=== PATIENT | female | born 1970 | race Caucasian/White ===

== ENCOUNTER 2016-11-12 05:27 | Day surgery (SDC) | payer OTHER ==
[2016-11-05 10:43] LABS: ABSOLUTE EOSINOPHILS # (AUTO) 0.2 10^3/uL (0.0-0.6); ABSOLUTE LYMPHOCYTES (AUTO) 3.4 10^3/uL (0.5-4.7); ABSOLUTE MONOCYTES (AUTO) 0.8 10^3/uL (0.1-1.4); BASOPHILS % (AUTO) 0.4 % (0-2); EOSINOPHILS % (AUTO) 1.8 % (0-6); HEMATOCRIT 38.1 % (36.0-47.0); HEMOGLOBIN 12.8 g/dL (12.0-15.5); HGB HCT DIFFERENCE 0.3; LYMPHOCYTES % (AUTO) 32.5 % (13-45); MEAN CORPUSCULAR HEMOGLOBIN 26.4 pg (27.0-33.4); MEAN CORPUSCULAR HGB CONC 33.5 g/dL (32.0-36.0); MEAN CORPUSCULAR VOLUME 79 fl (80-97); MONOCYTES % (AUTO) 7.9 % (3-13); RED BLOOD COUNT 4.85 10^6/uL (3.72-5.28); RED CELL DISTRIBUTION WIDTH 16.3 % (11.5-14.0); SEGMENTED NEUTROPHILS % (AUTO) 57.4 % (42-78); WHITE BLOOD COUNT 10.4 10^3/uL (4.0-10.5)
[2016-11-05 11:23] LABS: ANION GAP 12 (5-19); BLOOD UREA NITROGEN 12 mg/dL (7-20); CALCIUM 9.9 mg/dL (8.4-10.2); CARBON DIOXIDE 22 mmol/L (22-30); CHLORIDE 104 mmol/L (98-107); CREATININE RESULT 0.76 mg/dL (0.52-1.25); GLUCOSE 89 mg/dL (75-110); SODIUM 137.8 mmol/L (137-145)
[~2016-11-12 05:27] MED LIST: CEFAZOLIN INJ 1 GM VIAL IV PRN; LACTATED RINGERS 1000 ML IV PRN; LIDOCAINE 0.5% INJ-PF (5 MG/ML) 50 ML SDV SUBCUT PRN; NORMAL SALINE 1000 ML 1,000 ML IV PRN
[2016-11-12] MEDS ORDERED: CEFAZOLIN 2 GM/D5W RTU 2 GM/50 ML RTUPB IV ONE (05:30)
[2016-11-12] MEDS ORDERED: BUPIVACAINE HCL 0.25 % INJ/PF (2.5 MG/1 ML) 30 ML VIAL ONE (06:55)
[2016-11-12] MEDS ORDERED: METHYLENE BLUE 50 MG/10 ML AMPULE ONE (06:57)
[2016-11-12] MEDS ORDERED: MIDAZOLAM 2 MG/2 ML INJ ONE (07:16)
[2016-11-12] MEDS ORDERED: MORPHINE SULFATE 10 MG/ML INJ ONE (07:17)
[2016-11-12] MEDS ORDERED: FENTANYL CITRATE INJ/PF 250 MCG/5 ML AMPULE ONE (07:17)
[2016-11-12] MEDS ORDERED: PROPOFOL INJ 200 MG/20 ML VIAL IV ONE (07:17)
[2016-11-12] MEDS ORDERED: MEPERIDINE HCL/PF INJ 25 MG/1 ML DISP.SYRIN IV PRN (08:14)
[2016-11-12] MEDS ORDERED: DIPHENHYDRAMINE HCL 50 MG/ML VIAL IV PRN (08:14)
[2016-11-12] MEDS ORDERED: PROMETHAZINE HCL INJ 25 MG/1 ML VIAL IV PRN ×3 (08:14→11:35)
[2016-11-12] MEDS ORDERED: OXYCODONE-ACETAMINOPHEN 5-325 MG TABLET PO PRN ×3 (08:14→11:34)
[2016-11-12] MEDS ORDERED: FENTANYL CITRATE INJ/PF 100 MCG/2 ML AMPUL IV PRN ×3 (08:14)
[2016-11-12] MEDS ORDERED: MORPHINE SULFATE 10 MG/ML INJ IV PRN ×2 (08:14→11:34)
[2016-11-12] MEDS: FENTANYL CITRATE INJ/PF 100 MCG/2 ML AMPUL ONE ×3 (10:55→11:29)
--- NOTE | 2016-11-12 12:02 | OPERATIVE REPORT E ---
Operative Report NAME: EVERARDO STEPHENS : 1970 AGE: 46Y DATE OF SURGERY: 11/12/2016 ROOM: PREOPERATIVE DIAGNOSES: 1. MENOMETRORRHAGIA UNRESPONSIVE TO MEDICAL THERAPY. 2. UTERINE FIBROIDS. 3. PELVIC PAIN. POSTOPERATIVE DIAGNOSES: 1. MENOMETRORRHAGIA UNRESPONSIVE TO MEDICAL THERAPY. 2. UTERINE FIBROIDS. 3. PELVIC PAIN. 4. EXTENSIVE ABDOMINAL ADHESIONS. OPERATION: 1. Robotic total laparoscopic hysterectomy. 2. Bilateral salpingectomy. 3. Cystoscopy. 4. Lysis of adhesions. SURGEON: Rhoda Oates MD FRUIT AND VEGETABLE PACKER: Kimberly Minor MD ANESTHESIA: General. ESTIMATED BLOOD LOSS: 150 mL. INTRAVENOUS FLUIDS: 2000 mL. URINE OUTPUT: 300 mL clear urine at the end of the procedure. COMPLICATIONS: None. INDICATIONS: The patient is a 46-year-old, 1, para 1, with a history of menometrorrhagia unresponsive to medical therapy and who has a 4.1 cm intrauterine fibroid. Patient desired definitive treatment. She was counseled on robotic hysterectomy including, but not limited to, bleeding, infection, injury to surrounding organs or tissue, need of transfusion and possible exploratory laparotomy in case there is bleeding that cannot be identified or visualized during the surgical procedure, or too many adhesions due to previous surgical history. The patient understood and consented to procedure and agreed to proceed to the operating room. FINDINGS: Large myomatous uterus. Normal tubes and ovaries bilaterally. Soft boggy uterus consistent with *------*. Extensive omental adhesions to the anterior abdominal wall that had to be taken down. DESCRIPTION OF PROCEDURE: The patient was taken to the operating room. General anesthesia was induced without difficulty. She was placed in the dorsal lithotomy position, and was sterilely prepped and draped in the usual sterile fashion. Dora Hugger was placed to maintain control of core body temperature. Kimball catheter was placed in the bladder. A heavy weighted speculum was placed in the vaginal mucosae. A single-tooth tenaculum was placed on the anterior lip of the cervix. The cervical os was dilated so a uterine sound was used and was sounded to 10 cm. Two [id number] stitches are around 3 o'clock and 9 o'clock; were placed with anchoring sutures prior to placing the VCare. A VCare manipulator was attached to the uterus with a cervical ring and anchored to the stitches, the right and the left. Weighted speculum and single-tooth tenaculum were removed from the anterior lip of the cervix. Then the other 2 sutures were placed on the lateral aspect of the cervix to use as traction later, or in the case as needed, along with the VCare and they were anchored within the VCare itself. Horizontal supraumbilical incision was performed a scalpel. Veress needle was placed in abdominal cavity. Through the Veress needle, carbon dioxide was infused until pneumoperitoneum was established and obtained. This was done after the water drop test was done successfully. Veress needle was removed. The supraumbilical incision was extended and a 12-mm trocar and sleeve were placed in the umbilical cavity under direct visualization with the laparoscope without any difficulty. Trocar removed. Robotic laparoscope was placed in abdominal cavity. Please see the above findings. Due to extensive omental adhesions to the anterior abdominal wall, two 8 mm surgery ports are placed inferior to the umbilicus and lateral to the rectus abdominal muscles bilaterally. These were put in with partial view with a laparoscope and under direct visualization. They were put in and there was no injuries to surrounding organs or bowel or vasculature from that end. An administrative library assistant port was placed in the right upper quadrant as well. After all the ports have been identified and placed appropriately, using graspers and the LigaSure, the anterior omental adhesions were cauterized and transected for some of the lesions, and others were just peeled off easily. Once we had the anterior abdominal wall adhesions out of the equation, the hysterectomy portion was initiated. Prior to initiating the hysterectomy, ureters were identified on both sides and were both visualized, and have both excellent peristalsis prior to initiating the dissection and were well out of the surgical field at all times. At this point, the fimbriated end of the right fallopian tube was grasped on the right side, coagulated and transected along the mesosalpinx all the way down to the cornual region. The round ligament on the right side was cauterized and transected. The utero-ovarian ligament was cauterized and transected from the round ligament all the way down to the level of the uterus and the uterine arteries. Prior again to going through the right side, prior to initiating the procedure, both ureters were identified. The contralateral side was performed in a similar fashion where the fimbriated end of the fallopian tubes was grasped and picked up all the way through the mesosalpinx all the way to the cornual region, cauterized and transected. The utero-ovarian [ligament] was cauterized and transected. The round ligament was cauterized and transected all the way down to the level of the uterus and the uterine arteries. The vesicouterine peritoneum on the right side was then incised in an elliptical fashion, performing the right side of the bladder flap. The bladder was pushed down to the lower uterine segment without any difficulty. The ring was identified anteriorly and anterior colpotomy was performed. Colpotomy was then extended, circumscribing the cervix from the vaginal mucosae. The uterus and both fallopian tubes and the cervix were delivered through the vaginal mucosae. There were multiple oozing spots on the right side and the left side lateral pelvic sidewall and the vaginal cuff. Those were cauterized with a bipolar. The vaginal cuff at this point was closed using a running V-Loc suture. Attention was then turned to the ureters bilaterally to make sure we were far away from it. After closure of vaginal cuff, the ureters were bilateral peristalsing and were normal. Survey of the lateral pelvic sidewall also revealed excellent hemostasis. FloSeal was injected along the vaginal cuff for prophylactic measures and hemostasis. A second FloSeal was injected over the omental adhesions that were taken down due to being slightly oozy. Prior to applying the FloSeal over the omental region, some of the omentum was picked up with a LigaSure and it was cauterized and became hemostatic, so FloSeal was applied on top of it just for hemostasis as well as to make sure for extra coverage. At this point attention was then turned to below to perform the cystoscopy portion. Prior to removing the robotic instruments, methylene blue was given per my instructions to Anesthesia while doing the vaginal cuff closure. At this point, attention was then turned to below to perform the cystoscopy portion. The cystoscope was introduced without any difficulty. Cystoscope visualization revealed no trauma or foreign bodies or injury to the bladder and mucosal wall. Both ureters identified and there was excellent strong flow of efflux of blue urine bilaterally from both ureters on the right and the left side; and, of course, there was the normal bubble sign as well. There was excellent efflux from both urethral orifices with strong flow. At this point, the cystoscope was removed. The robot was undocked. The abdomen was desufflated. The trocars were removed. The 12 mm supraumbilical incision was repaired with a UR6 to repair the fascia and reapproximated. The remaining incisions were closed with 4-0 Monocryl in a horizontal mattress fashion and a running fashion for the supraumbilical and the right upper quadrant incision in a subcuticular fashion. Dermabond was applied on top of it. All sponge and needle counts were correct x2. Dermabond was applied on top of the incisions. Patient did receive prophylactic IV antibiotics. Kimball bag was noted to contain clear urine at the end of the procedure. Kimball catheter was removed. Vaginal mucosa was inspected to make sure there were no lacerations. A sponge stick was used to remove any previous old blood and debris. The patient was extubated successfully in the recovery room. The patient is currently stable in PACU. Patient tolerated the procedure well and was sent to the recovery room in excellent condition. DICTATING PHYSICIAN: Rhoda aOtes MD [id number] PHY#: [id number] ID: [id number] JOB#: [id number] ACCT: [id number] cc:Rhoda Oates >
[2016-11-12] MEDS ORDERED: NORMAL SALINE 500 ML IV ONE (12:15)
[2016-11-12] MEDS: ONDANSETRON HCL INJ/PF 4 MG/2 ML SDV IV PRN ×2 (12:46→16:51)
[2016-11-12] MEDS ORDERED: ROCURONIUM BROMIDE INJ 50 MG/5 ML VIAL IV ONE (14:30)
[2016-11-12] MEDS ORDERED: SUCCINYLCHOLINE CHLORIDE INJ 200 MG/10 ML VIAL ONE (14:30)
[2016-11-12] MEDS ORDERED: NEOSTIGMINE METHYLSULFATE 10 MG/10 ML VIAL ONE (14:30)
[2016-11-12] MEDS ORDERED: ONDANSETRON HCL INJ/PF 4 MG/2 ML SDV ONE (14:30)
[2016-11-12] MEDS ORDERED: GLYCOPYRROLATE INJ 0.4 MG/2 ML VIAL ONE (14:30)
[2016-11-12] MEDS ORDERED: DEXAMETHASONE SOD PHOSPHATE INJ 4 MG/1 ML VIAL ONE (14:30)
[2016-11-12] MEDS ORDERED: LIDOCAINE 2% INJ-PF (20 MG/ML) 10 ML AMPUL ONE (14:30)
[2016-11-12 17:58] VITALS: BP 145/73
[2016-11-13] MEDS ORDERED: CETIRIZINE 10 MG TABLET PO SCH (10:00)
[2016-11-13] MEDS ORDERED: FLUTICASONE NASAL SPRAY 50 MCG/SPRY 120 SPRAY/16 GM NASL SCH (10:00)
== END 2016-11-12 19:01 | disposition home or self-care (01) ==
LOC: OROUT 05:27 → 2N 12:08 → OROUT 19:01
PROVIDERS: ATTEND Obstetrics & Gynecology
PROC: 0UTC4ZZ Resection of Cervix, Percutaneous Endoscopic Approach (ICD-10-PCS; 2016-11-12)
PROC: 0UT74ZZ Resection of Bilateral Fallopian Tubes, Percutaneous Endoscopic Approach (ICD-10-PCS; 2016-11-12)
PROC: 8E0W4CZ Robotic Assisted Procedure of Trunk Region, Percutaneous Endoscopic Approach (ICD-10-PCS; 2016-11-12)
PROC: 0DNW4ZZ Release Peritoneum, Percutaneous Endoscopic Approach (ICD-10-PCS; 2016-11-12)
PROC: 0UT94ZZ Resection of Uterus, Percutaneous Endoscopic Approach (ICD-10-PCS; principal; 2016-11-12 07:30)
DX: N92.1 Excessive and frequent menstruation with irregular cycle (principal); N72 Inflammatory disease of cervix uteri; D25.9 Leiomyoma of uterus, unspecified; R10.2 Pelvic and perineal pain; K66.0 Peritoneal adhesions (postprocedural) (postinfection); Z79.899 Other long term (current) drug therapy
CPT/HCPCS: 49329; 58571; S2900; 36415; 80048; 81025; 840; 84703; 85025; 86850; 86900; 86901; 88307; J0330; J0690; J1100; J2250; J2270; J2405; J2704; J3010; J3490; Q9968

== ENCOUNTER → 2018-03-31 | Outpatient (CLI) | payer OTHER ==
--- NOTE | 2018-03-31 15:04 | RADIOLOGY REPORT (SQ) ---
EXAM DESCRIPTION: BARIUM SWALLOW ESOPHAGUS COMPLETED DATE/TIME: 03/31/2018 9:18 am REASON FOR STUDY: DYSPHAGIA (R13.10) R13.10 DYSPHAGIA, UNSPECIFIED COMPARISON: None. TECHNIQUE: Under fluoroscopic guidance, patient ingested effervescent granules followed by thick and thin barium. Fluoroscopic spot images and routine radiographic images acquired and stored on PACS. 12 MM BARIUM TABLET GIVEN: The patient swallowed a 12 mm in tablet which stuck in the upper esophagus in the patient had to expel it out. LIMITATIONS: None. FLUOROSCOPY TIME: FLUORO TIME: 2.08 minutes 7 images saved to PACS. FINDINGS: NEUROMUSCULAR COORDINATION OF SWALLOW: Normal. No aspiration. ESOPHAGEAL MOTILITY: Normal peristalsis. No esophageal spasm. ESOPHAGEAL MUCOSA: Normal mucosa without masses or ulceration. There is an anterior web present in t he upper esophagus. GASTRO-ESOPHAGEAL JUNCTION: No hiatal hernia. Moderate gastroesophageal reflux. NON-GI TRACT STRUCTURES: No significant finding. OTHER: No other significant finding. IMPRESSION: ANTERIOR WEB IN THE UPPER ESOPHAGUS WHICH IMPEDED THE PASSAGE OF A 12 MM BARIUM TABLET. MODERATE REFLUX. OTHERWISE UNREMARKABLE STUDY. RECOMMENDATION: None COMMENT: None Quality ID [id number]: Final reports for procedures using fluoroscopy that document radiation exposure hussein wendy, or exposure time and number of fluorographic images (if radiation exposure indices are not avail able) TECHNICAL DOCUMENTATION: JOB ID: [id number]- All Rights Reserved Reading location - IP/workstation name: [email or web address] [id number]
== END ==
LOC: RAD 08:43
PROVIDERS: ATTEND Internal Medicine Gastroenterology
DX: K21.9 Gastro-esophageal reflux disease without esophagitis (principal); R13.10 Dysphagia, unspecified
CPT/HCPCS: 74220